=== PATIENT | female | born 1970 | race American Indian/Alaskan Native ===

== ENCOUNTER 2018-07-18 09:37 | Inpatient (IN) | payer MEDICAID, OTHER ==
[2018-07-18] MEDS ORDERED: TORADOL IV ONE (09:52)
[2018-07-18] MEDS ORDERED: BOOSTRIX IM ONE (09:53)
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
[2018-07-18 13:13] LABS: Basophils # (Auto) 0.1 K/mm3 (0.0-0.1); Basophils % (Auto) 0.4 % (0.0-1.8); Eosinophils % (Auto) 0.1 % (0.0-4.3); Hematocrit 43.5 % (30.3-42.9); Hemoglobin 14.5 gm/dl (10.1-14.3); Lymphocytes % (Auto) 7.3 % (13.4-35.0); Mean Corpuscular HGB Conc 33 % (30-34); Mean Corpuscular Volume 88 fl (79-97); Monocytes # (Auto) 0.7 K/mm3 (0.0-0.8); Monocytes % (Auto) 4.9 % (0.0-7.3); Red Blood Count 4.97 M/mm3 (3.65-5.03); Red Cell Distribution Width 14.5 % (13.2-15.2)
[2018-07-18 13:19] LABS: BUN/Creatinine Ratio 11; Blood Urea Nitrogen 8 mg/dL (7-17); Calcium 8.9 mg/dL (8.4-10.2); Hemolysis Index 39
[2018-07-18 13:22] LABS: INR 0.98 (0.87-1.13)
[2018-07-18 13:23] LABS: Alanine Aminotransferase 37 units/L (7-56); Albumin 4.1 g/dL (3.9-5)
[2018-07-18 13:24] LABS: Platelet Count 173 K/mm3 (140-440)
[2018-07-18 13:25] LABS: Bilirubin,Direct < 0.2 mg/dL (0-0.2)
[2018-07-18 14:22] LABS: Bilirubin,Urine NEG (Negative); Blood,Urine NEG (Negative); Color,Urine Yellow (Yellow); Mucus,Urine FEW /HPF; Urobilinogen,Urine < 2.0 mg/dL (<2.0)
[2018-07-18] MEDS ORDERED: ZOFRAN IV ONE ×2 (14:31→16:49)
[2018-07-18] MEDS ORDERED: MORPHINE IV ONE ×2 (14:31→15:32)
[2018-07-18] MEDS ORDERED: SODIUM CHLORIDE FLUSH SYRINGE 10 ML IV PRN (15:37)
[2018-07-18] MEDS ORDERED: PROVENTIL IH PRN (15:37)
[2018-07-18] MEDS ORDERED: ZOFRAN IV PRN (15:37)
[2018-07-18] MEDS ORDERED: TYLENOL PO PRN (15:37)
[2018-07-18] MEDS ORDERED: MORPHINE IV PRN (15:37)
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
[2018-07-18] MEDS: PERCOCET 5/325 PO PRN (21:16)
[2018-07-18] MEDS ORDERED: SODIUM CHLORIDE FLUSH SYRINGE 10 ML IV SCH (22:00)
[2018-07-19] MEDS: PERCOCET 5/325 PO PRN ×2 (04:50→10:35)
[2018-07-19 06:34] LABS: Basophils % (Auto) 0.4 % (0.0-1.8); Eosinophils # (Auto) 0.1 K/mm3 (0.0-0.4); Eosinophils % (Auto) 0.9 % (0.0-4.3); Hematocrit 36.8 % (30.3-42.9); Lymphocytes # (Auto) 1.1 K/mm3 (1.2-5.4); Lymphocytes % (Auto) 15.4 % (13.4-35.0); Mean Corpuscular HGB Conc 36 % (30-34); Mean Corpuscular Volume 87 fl (79-97); Monocytes # (Auto) 0.8 K/mm3 (0.0-0.8); Monocytes % (Auto) 10.3 % (0.0-7.3); Platelet Count 208 K/mm3 (140-440); Red Blood Count 4.21 M/mm3 (3.65-5.03); Red Cell Distribution Width 14.7 % (13.2-15.2)
[2018-07-19 06:53] LABS: BUN/Creatinine Ratio 12; Blood Urea Nitrogen 7 mg/dL (7-17); Calcium 8.5 mg/dL (8.4-10.2); Hemolysis Index 9
[2018-07-19 07:16] VITALS: BP 160/101
--- NOTE | 2018-07-19 08:28 | Event Note ---
Date: 07/19/[address] scan. Will check back later.
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
[2018-07-19] MEDS ORDERED: LEVAQUIN 500MG/100ML 500 MG/100 ML BAG IV SCH ×2 (10:00→17:13)
--- NOTE | 2018-07-19 13:01 | Event Note ---
Date: 07/19/18 Came to see patient. She is off the floor without permission.
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
== END 2018-07-19 16:06 | disposition home or self-care (01) | DRG 184 ==
LOC: ED 09:37 → 3B-SURG 15:37
PROVIDERS: ADMIT Internal Medicine; ATTEND Internal Medicine
DX: S22.41XA Multiple fractures of ribs, right side, initial encounter for closed fracture (principal); S32.048A Other fracture of fourth lumbar vertebra, initial encounter for closed fracture; R65.10 Systemic inflammatory response syndrome (SIRS) of non-infectious origin without acute organ dysfunction; J93.9 Pneumothorax, unspecified; S02.2XXA Fracture of nasal bones, initial encounter for closed fracture; Z79.899 Other long term (current) drug therapy; Y93.89 Activity, other specified; Y92.89 Other specified places as the place of occurrence of the external cause; Y99.8 Other external cause status; V89.2XXA Person injured in unspecified motor-vehicle accident, traffic, initial encounter
CPT/HCPCS: 36415; 70450; 70486; 70498; 71045; 71046; 71260; 72040; 72070; 72125; 74177; 80048; 80076; 81001; 85025; 85610; 85730; 86850; 86900; 86901; 90715; G0378; J1885; J2270; J2405; Q9967